=== PATIENT | female | born 1960 | race Caucasian/White ===

== ENCOUNTER → 2016-12-05 | Outpatient (CLI) | payer BC ==
--- NOTE | 2016-12-06 07:47 | WWHP ---
DATE OF SERVICE: 12/05/16 CHIEF COMPLAINT: The patient is here for her routine gynecological exam. HISTORY OF PRESENT ILLNESS: This is a 56-year-old G3, P3, with an LMP of 2015. She is status post tubal ligation. She has occasional hot flashes and occasional night sweats. She states these have improved. It has been about five years since her last pelvic exam and mammogram. She is without gynecologic complaints. PAST MEDICAL HISTORY: Unremarkable. Medications: Ibuprofen prn. ALLERGIES: No known drug allergies. PAST SURGICAL HISTORY AND PAST MANUFACTURING TECHNICIAN HISTORY: Laparoscopic tubal sterilizations in 2000. PAST OB HISTORY: Three vaginal deliveries. PAST MANUFACTURING TECHNICIAN HISTORY: She has been menopausal since 2016. She has no history of STDs SOCIAL HISTORY: She quit smoking in 2000. She has about four to 12 alcoholic drinks per month and denies drug use. 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 FAMILY HISTORY: Maternal aunt breast cancer. REVIEW OF SYSTEMS: Weight has fluctuated between 150 and 160 pounds over the last year. She denies respiratory, cardiac or GI problems. PHYSICAL EXAM: Blood pressure 182/82. Repeat blood pressure 158/80. Height 5 feet 5 inches, weight 160 pounds. Temperature 96.0. Pulse 59. This is a well developed, well nourished white female who is alert and oriented times three in no acute distress. HEENT: is within normal limits. Neck is supple without mass or thyromegaly. Chest and lungs clear to auscultation. Heart is regular rate and rhythm. Breasts: Without mass or discharge. Axillary exam is negative for adenopathy. Back negative for CVA tenderness. Abdomen is soft and nontender without palpable masses. Pelvic exam, external genitalia reveals mild atrophy without lesions. Cervix and vagina reveals mild atrophy without lesions. There is no evidence of prolapse. The uterus is mid position, nongravid size and nontender. There are no palpable adnexal masses or tenderness. Rectal exam negative for mass or tenderness. Negative for occult blood. Extremities nontender. IMPRESSION: 1. A 56 year old menopausal female with normal gynecological exam. 2. Elevated blood pressure with no history of chronic hypertension. PLAN: 1. Pap smear was performed. 2. Self breast examination was discussed with the patient. 3. Mammogram is due and a slip was given to the patient for this. 4. We discussed her elevated blood pressure. I have stressed the importance of following up with her primary care physician for blood pressure evaluation and treatment. I have also recommended that she do home blood pressure checks since she is able to do this. 5. Osteoporosis prevention was discussed. 6. She will return in one year. PAUL
== END | disposition home or self-care (01) ==
LOC: WWCWWP 09:13
PROVIDERS: ATTEND Obstetrics & Gynecology
DX: Z01.419 Encounter for gynecological examination (general) (routine) without abnormal findings (principal)

== ENCOUNTER → 2016-12-26 | Outpatient (CLI) | payer BC ==
--- NOTE | 2016-12-27 13:18 | MM ---
Reason for exam: screening (asymptomatic). Last mammogram was performed 6 years and 5 months ago. History: Patient is postmenopausal. Family history of breast cancer in maternal aunt. Physical Findings: A clinical breast exam by your physician is recommended on an annual basis and results should be correlated with mammographic findings. MG Screening Mammo w CAD Bilateral CC and MLO view(s) were taken. Prior study comparison: August 01, 2010, bilateral digital screening mammo w/CAD. June 07, 2006, bilateral screening mammogram w/CAD. There are scattered fibroglandular densities. No suspicious abnormality. No significant changes when compared with prior studies. ASSESSMENT: Negative, BI-RAD 1 RECOMMENDATION: Routine screening mammogram of both breasts in 1 year.
== END | disposition home or self-care (01) ==
LOC: RADMAMWWP 09:06
PROVIDERS: ATTEND Obstetrics & Gynecology
DX: Z12.31 Encounter for screening mammogram for malignant neoplasm of breast (principal)

== ENCOUNTER → 2019-11-04 | Outpatient (CLI) | payer BC ==
--- NOTE | 2019-11-04 15:30 | BD ---
EXAMINATION TYPE: Axial Bone Density DATE OF EXAM: 11/04/2019 COMPARISON: NONE CLINICAL HISTORY: N 95.1, postmenopausal Height: 5 FT 3 1/2 IN Weight: 158 FRAX RISK QUESTIONS: Alcohol (3 or more units per day): NO Family History (Parent hip fracture): NO Glucocorticoids (More than 3mos): NO (Ex: prednisone, prednisolone, methylprednisolone, dexamethasone, and hydrocortisone). History of Fracture in Adulthood: NO Secondary Osteoporosis: 1. Type 1 Diabetes: NO 2. Hyperthyroidism: NO 3. Menopause before 45: NO 4. Malnutrition: NO 5. Chronic liver disease: NO Rheumatoid Arthritis: NO Current Tobacco Use: NO RISK FACTORS HISTORY OF: Active: YES Postmenopausal woman: AGE 55 MEDICATIONS: Additional Medications: CHOLESTEROL MEDS, ANTI DEPRESSANTS Additional History: EXAM MEASUREMENTS: Bone mineral densitometry was performed using the [employer]. Bone mineral density as measured about the Lumbar spine is: ----- L1-L4(G/cm2): 1.304 T Score Values are as follows: ----- L2: 0.5 ----- L3: 1.1 ----- L4: 2.2 ----- L1-L4: 1.0 BASELINE Bone mineral density about the R hip (g/cm2): 0.987 Bone mineral density about the L hip (g/cm2): 0.934 T Score values are as follows: -----R Neck: -0.4 -----L Neck: -0.7 -----R Total: 0.2 -----L Total: 0.4 BASELINE IMPRESSION: Normal (Values between +1 and -1 indicate normal bone mass). Consider repeating this study in 5 year s or sooner if there is some new clinical indication. NOTE: T-SCORE=SD OF THE YOUNG ADULT MEAN.
--- NOTE | 2019-11-05 10:41 | MM ---
Reason for exam: screening (asymptomatic). Last mammogram was performed 2 years and 10 months ago. History: Patient is postmenopausal. Family history of breast cancer in maternal aunt. Physical Findings: A clinical breast exam by your physician is recommended on an annual basis and results should be correlated with mammographic findings. MG Screening Mammo w CAD Bilateral CC and MLO view(s) were taken. Prior study comparison: December 26, 2016, bilateral MG screening mammo w CAD. August 01, 2010, bilateral digital screening mammo w/CAD. The breast tissue is heterogeneously dense. This may lower the sensitivity of mammography. There is no discrete abnormality. No significant changes when compared with prior studies. ASSESSMENT: Negative, BI-RAD 1 RECOMMENDATION: Routine screening mammogram of both breasts in 1 year.
== END | disposition home or self-care (01) ==
LOC: RADMAMWWP 13:19
PROVIDERS: ATTEND Obstetrics & Gynecology
DX: Z12.31 Encounter for screening mammogram for malignant neoplasm of breast (principal); N95.1 Menopausal and female climacteric states
CPT/HCPCS: 77067; 77080

== ENCOUNTER → 2022-05-07 | Outpatient (CLI) | payer OTHER ==
--- NOTE | 2022-05-08 18:56 | MM ---
Reason for Exam: Screening (asymptomatic). Last mammogram was performed 2 year(s) and 6 month(s) ago. Patient History: Menarche at age 15. First Full-Term at age 29. Postmenopausal. Maternal aunt had breast cancer, age 70. Risk Values: Meg 5 year model risk: 1.5%. NCI Lifetime model risk: 8.3%. Prior Study Comparison: 08/01/2010 Bilateral Screening Mammogram, [facility]. 12/26/2016 Bilateral Screening Mammogram, [facility]. 11/04/2019 Bilateral Screening Mammogram, [facility]. Tissue Density: There are scattered fibroglandular densities. Findings: Analyzed By CAD. There is no suspicious group of microcalcifications or new suspicious mass in either breast. Overall Assessment: Negative, BI-RAD 1 Management: Screening Mammogram of both breasts in 1 year. 1. Patient should continue monthly self breast exams. 2. A clinical breast exam by your physician is recommended on an annual basis. 3. This exam should not preclude additional follow-up of suspicious palpable abnormalities. Electronically signed and approved by: Elizabeth Burger M.D. Radiologist
== END | disposition home or self-care (01) ==
LOC: RADMAMWWP 16:38
PROVIDERS: ATTEND Internal Medicine Geriatric Medicine
DX: Z12.31 Encounter for screening mammogram for malignant neoplasm of breast (principal); Z78.0 Asymptomatic menopausal state; Z80.3 Family history of malignant neoplasm of breast
CPT/HCPCS: 77067

== ENCOUNTER → 2024-03-25 | Outpatient (CLI) | payer OTHER ==
--- NOTE | 2024-03-27 15:06 | MM ---
Reason for Exam: Screening (asymptomatic). Last mammogram was performed 1 year(s) and 10 month(s) ago. Patient History: Menarche at age 15. First Full-Term at age 29. Postmenopausal. Maternal aunt had breast cancer, age 70. Risk Values: Meg 5 year model risk: 1.6%. NCI Lifetime model risk: 7.9%. Prior Study Comparison: 12/26/2016 Bilateral Screening Mammogram, [facility]. 11/04/2019 Bilateral Screening Mammogram, [facility]. 05/07/2022 Bilateral MG screening mammo w CAD, [facility]. Tissue Density: There are scattered areas of fibroglandular density. Findings: Analyzed By CAD. There is no suspicious group of microcalcifications or new suspicious mass in either breast. Overall Assessment: Negative, BI-RAD 1 Management: Screening Mammogram of both breasts in 1 year. Patient should continue monthly self-breast exams. A clinical breast exam by your physician is recommended on an annual basis. This exam should not preclude additional follow-up of suspicious palpable abnormalities. Note on Meg scores and lifetime risk: 1. A Meg score greater than 3% is considered moderate risk. If this is the case, consider specialist referral to assess eligibility for a risk reducing agent. 2. If overall lifetime risk for the development of breast cancer is 20% or higher, the patient may qualify for future screening with alternating mammogram and breast MRI. [facility], , 03/27/2024 3:02 PM. Electronically signed and approved by: Elizabeth Burger M.D. Radiologist
== END | disposition home or self-care (01) ==
LOC: RADMAMWWP 09:24
PROVIDERS: ATTEND Internal Medicine Geriatric Medicine
DX: Z12.31 Encounter for screening mammogram for malignant neoplasm of breast (principal); Z78.0 Asymptomatic menopausal state; Z80.3 Family history of malignant neoplasm of breast; R92.323 Mammographic fibroglandular density, bilateral breasts
CPT/HCPCS: 77067